=== PATIENT | male | born 1960 | race Caucasian/White ===

== ENCOUNTER 2023-08-08 19:52 | Emergency (ER) | payer OTHER ==
[2023-08-08] MEDS ORDERED: LIDOCAINE 1% 20 ML MDV ONE (20:40)
[2023-08-08] MEDS ORDERED: CEPHALEXIN 250 MG CAP ONE (20:40)
[2023-08-08] MEDS ORDERED: IBUPROFEN 200 MG TAB PO ONE (20:41)
[2023-08-08] MEDS ORDERED: SMZ./TMP. 800/160 MG TABLET ONE (20:41)
[2023-08-08] MEDS ORDERED: HYDROCODONE/APAP 10/325 TAB ONE (20:41)
--- NOTE | 2023-08-08 21:08 | RAD REPORT ---
EXAM DESCRIPTION: RAD - Foot Left 3 View - 08/08/2023 8:56 pm CLINICAL HISTORY: ULCER COMPARISON: <Comparisons> FINDINGS: Soft tissue ulceration is seen adjacent to the fifth metatarsal head. There is bony destru ctive changes involving the distal aspect of the fifth metatarsal as well as the base of the proximal phalanx of the fifth toe compatible with osteomyelitis.
[2023-08-08 21:35] LABS: Absolute Basophils 0.2 K/uL (0-0.5); Absolute Eosinophils 0.1 K/uL (0-0.5); Absolute Lymphocytes (CBC) 3.3 K/uL (0.7-4.9); Absolute Monocytes 1.6 K/uL (0.1-1.3); Absolute Neutrophil 11.4 K/uL (1.8-8.0); Eosinophils % 0.9 % (0-4.4); Hematocrit 37.8 % (39.6-49.0); Hemoglobin 12.8 g/dL (13.6-17.9); Lymphocytes % 19.7 % (15.3-44.8); MCH 30.6 pg (27.0-35.0); MCHC 33.9 g/dL (32.0-36.0); MCV 90.2 fL (80-100); MPV 6.8 fL (7.6-11.3); Monocytes % 9.6 % (3.3-12.3); Neutrophils % 68.8 % (41.7-73.7); Platelets 488 thou/uL (152-406); Red Cell Distribution Width 14.1 % (12.1-15.2)
[2023-08-08 21:58] LABS: ALT/SGPT 15 U/L (16-61); Albumin 3.7 g/dL (3.4-5.0); Albumin/Globulin Ratio 0.8 (1.1-1.8); Alkaline Phosphatase 75 U/L (45-117); Anion Gap 8.9 mEq/L (5.0-15.0); BUN Blood Urea Nitrogen 33 mg/dL (7-18); Bicarbonate 25 mEq/L (21-32); Bilirubin Total 0.6 mg/dL (0.2-1.0); Globulin 4.5 g/dL (2.3-3.5); Glomerular Filtration Rate 34 ml/min (=/>90); Glucose Level 80 mg/dL (74-106); Potassium 3.9 mEq/L (3.5-5.1); Protein, Total 8.2 g/dL (6.4-8.2); Sodium Level 136 mEq/L (136-145)
[2023-08-08 22:01] LABS: AST/SGOT < 10 U/L (15-37)
--- NOTE | 2023-08-08 22:12 | EDPHYS ---
Physician Documentation [facility] Name: Kenny Escalante Age: 63 yrs Sex: Male : 1960 Arrival Date: 08/08/2023 Time: 19:52 Bed 18 Private MD: ED Physician Jean Acharya HPI: 08/07 20:02 This 63 yrs old Male presents to ER via Unassigned with complaints of Foot sp4 Pain - ulcer. 20:08 Patient presents for evaluation of left foot diabetic ulcer. . sp4 22:15 63-year-old male presents with left foot pain and left lateral foot diabetic ulcer. . sp4 Historical: - Allergies: 20:08 No Known Allergies; jj7 - PMHx: 20:08 Diabetes mellitus; Hypertensive disorder; NEUROPATHY; jj7 - PSHx: 20:08 HERNIA REPAIR; Appendectomy; jj7 - Immunization history:: Adult Immunizations not up to date, Client reports having NOT received the Covid vaccine. Pneumococcal vaccine is up to date, Flu vaccine is up to date. - Infectious Disease History:: Denies. - Social history:: Smoking status: Patient reports the use of cigarette tobacco products, smokes 1.5 packs per day, Patient uses Patient/guardian denies using alcohol, street drugs, IV drugs. - Family history:: not pertinent. ROS: 22:15 MS/extremity: Positive for There is moderate size left lateral foot diabetic ulcer with sp4 signs of devitalized tissue and some necrotic debris. Ulcer was washed out during examination, of the lateral side of left foot, 22:15 Constitutional: Negative for fever, chills, and weight loss, Eyes: Negative for injury, pain, redness, and discharge, ENT: Negative for injury, pain, and discharge, Neck: Negative for injury, pain, and swelling, Cardiovascular: Negative for chest pain, palpitations, and edema, Respiratory: Negative for shortness of breath, cough, wheezing, and pleuritic chest pain, Abdomen/GI: Negative for abdominal pain, nausea, vomiting, diarrhea, and constipation, Back: Negative for injury and pain, MS/Extremity: Negative for injury and deformity, Skin: Positive left foot diabetic necrotic ulcer Neuro: Negative for headache, weakness, numbness, tingling, and seizure, Psych: Negative for depression, anxiety, Allergy/Immunology: Negative for hives, rash, and allergies Endocrine: Negative for neck swelling, polydipsia, polyuria, polyphagia, and weight changes 22:15 All other systems are negative, Exam: 22:15 Constitutional: This is a well developed, well nourished patient who is awake, alert, sp4 and in no acute distress. Head/Face: Normocephalic, atraumatic. Eyes: Pupils equal round and reactive to light, extra-ocular motions intact. Lids and lashes normal. Conjunctiva and sclera are not injected. Cornea within normal limits. Periorbital areas with no swelling, redness, or edema. ENT: Nares patent. No nasal discharge, no septal abnormalities noted. Tympanic membranes are normal and external auditory canals are clear. Oropharynx with no redness, swelling, or masses, exudates, or evidence of obstruction, uvula midline. Mucous membranes moist. Neck: Trachea midline, no thyromegaly or masses palpated, and no cervical lymphadenopathy. Supple, full range of motion without nuchal rigidity, or vertebral point tenderness. Chest/axilla: Normal chest wall appearance and motion. Nontender with no deformity. No lesions are appreciated. Cardiovascular: Regular rate and rhythm with a normal S1 and S2. No gallops, murmurs, or rubs. Normal PMI, no JVD. No pulse deficits. Respiratory: Lungs have equal breath sounds bilaterally, clear to auscultation and percussion. No rales, rhonchi or wheezes noted. No increased work of breathing, no retractions or nasal flaring. Abdomen/GI: Soft, with normal bowel sounds. No distension or tympany. No guarding or rebound. No evidence of tenderness throughout. Back: No spinal tenderness. No costovertebral tenderness. Skin: Warm, dry with normal turgor. Normal color with no rashes, no lesions, and no evidence of cellulitis. MS/ Extremity: Pulses equal, no cyanosis. Neurovascular intact. Full, normal range of motion. Positive left foot diabetic necrotic ulcer with devitalized tissue. No sign of left foot cellulitis. Ulcer was washed out during examination Neuro: Awake and alert, GCS 15, oriented to person, place, time, and situation. Cranial nerves II-XII grossly intact. Motor strength 5/5 in all extremities. Sensory grossly intact. Psych: Awake, alert, with orientation to person, place and time. Behavior, mood, and affect are within normal limits Vital Signs: 20:03 BP 91 / 80; Pulse 103; Resp 19; Temp 98.6; Pulse Ox 100% ; Weight 108.86 kg; Height 6 jj7 ft. 1 in. ; Pain 10/10; 21:19 BP 112 / 71; Pulse 84; Pulse Ox 98% on R/A; tm6 22:23 BP 121 / 70; Pulse 86; Resp 19; Temp 98.4(TE); Pulse Ox 97% on R/A; Pain 0/10; tm6 20:03 Body Mass Index 31.66 (108.86 kg, 185.42 cm) [facility] 20:03 Pain Scale: Adult [facility] 22:23 Pain Scale: Adult [facility] [place] Coma Score: 22:15 Eye Response: spontaneous(4). Motor Response: obeys commands(6). Verbal Response: sp4 oriented(5). Total: 15. MDM: 20:19 Patient medically screened. sp4 21:39 ED course: EXAM DESCRIPTION: RAD - Foot Left 3 View - 08/08/2023 8:56 pm CLINICAL sp4 HISTORY: ULCER COMPARISON: FINDINGS: Soft tissue ulceration is seen adjacent to the fifth metatarsal head. There is bony destructive changes involving the distal aspect of the fifth metatarsal as well as the base of the proximal phalanx of the fifth toe compatible with osteomyelitis. Signed By: Joce Allen MD. 22:19 Differential diagnosis: fracture, sprain, foreign body, penetrating trauma, arthritis, sp4 gout, cellulitis. Data reviewed: vital signs, nurses notes, radiologic studies, plain films. ED course: Patient was discussed with general surgeon regarding chronic appearing osteomyelitis of the left fifth metatarsal. Patient at this time stable for discharge home with p.o. antibiotics for the next 21 days including Bactrim twice a day cephalexin 4 times a day. Patient advised to quit smoking stat. Advised to follow-up with general surgeon or office visit is to discuss options about left foot surgery and ulcer debridement. . 08/07 21:30 Order name: Comprehensive Metabolic Panel EDMS 08/07 21:30 Order name: CBC with Automated Diff EDMS 08/07 21:35 Order name: CBC with Automated Diff; Complete Time: 21:41 EDMS 08/07 22:01 Order name: Comprehensive Metabolic Panel; Complete Time: 22:03 EDNH 08/07 20:19 Order name: Foot Left 3 View XRAY sp4 08/07 20:22 Order name: Foot Left 3 View [facility] 08/07 21:09 Order name: RAD; Complete Time: 21:29 EDNH 08/07 20:08 Order name: IV Saline Lock; Complete Time: 21:10 sp4 08/07 20:08 Order name: Labs collected and sent; Complete Time: 21:10 [facility] 08/07 20:29 Order name: Dressing - Wound; Complete Time: 21:35 sp4 08/07 20:29 Order name: Gloves, Sterile; Complete Time: 21:02 [facility] 08/07 20:29 Order name: Setup Suture Tray; Complete Time: 21:02 [facility] 08/07 20:30 Order name: Orthopedic shoe: left foot ortho boot - MD will apply; Complete Time: 21:05 sp4 Administered Medications: 20:58 Drug: Trimethoprim-Sulfamethoxazole PO (160 mg-800 mg (DS) 1 tablet PO once Route: PO; tm6 20:58 Drug: Cephalexin PO 500 mg PO once Route: PO; tm6 20:58 Drug: [place] PO 10 mg-325 mg 1 tabs PO once Route: PO; tm6 20:58 Drug: Ibuprofen PO 600 mg PO once Route: PO; tm6 21:31 Drug: Lidocaine Infiltration (1 %) 20 ml 20 ml Infiltration once; to bedside {Note: tm6 administered by MD.} Volume: 20 ml; Route: Infiltration; 21:32 Not Given (Duplicate Order): lidocaine(1 %) 20 ml 20 ml Infiltration once; to bedside tm6 Disposition Summary: 08/08/23 22:12 Discharge Ordered Problem: new sp4 Symptoms: have improved sp4 Condition: Stable sp4 Diagnosis - Diabetic left foot ulcer, left fifth metatarsal chronic osteomyelitis , sp4 complications of diabetes Followup: sp4 - With: Cedric Mckeon MD - When: 2 - 3 days - Reason: Recheck today's complaints Discharge Instructions: - Discharge Summary Sheet sp4 - Osteomyelitis, Adult sp4 Forms: - Prescription Opioid Use sp4 Prescriptions: - Cephalexin 500 mg Oral capsule - take 1 capsule ORAL route every 6 hours for 21 days; 84 capsule; Refills: 0, sp4 Product Selection Permitted - Tramadol 50 mg Oral tablet - take 1 tablet ORAL route every 8 hours as needed; 25 tablet; Refills: 0, sp4 Product Selection Permitted - Bactrim DS 800-160 mg Oral tablet - take 1 tablet ORAL route every 12 hours for 21 days; 42 tablet; Refills: 0, sp4 Product Selection Permitted - methocarbamol 750 mg Oral tablet - take 2 tablet ORAL route every 8 hours for 2 days PRN pain; 60 tablet; sp4 Refills: 0, Product Selection Permitted Signatures: Dispatcher [employer] [facility] Ryan Goldman RN RN jj7 Jean Acharya MD MD sp4 Shelbie Morales RN RN tm6 Corrections: (The following items were deleted from the chart) 20:09 20:09 C-REACTIVE PROTEIN+C.LAB.BRZ ordered. [facility] 22:21 22:19 ED course: Patient was discussed with general surgeon regarding chronic appearing sp4 osteomyelitis of the left fifth metatarsal. . sp4
--- NOTE | 2023-08-08 22:12 | ER ---
Nurse's Notes [facility] Name: Kenny Escalante Age: 63 yrs Sex: Male : 1960 Arrival Date: 08/08/2023 Time: 19:52 Bed 18 Private MD: Diagnosis: Diabetic left foot ulcer, left fifth metatarsal chronic osteomyelitis , complications of diabetes Presentation: 08/07 20:03 Chief complaint: Patient states: LEFT FOOT ULCER X1.5 MONTHS. Coronavirus screen: At [facility] this time, the client does not indicate any symptoms associated with coronavirus-19. Ebola Screen: No symptoms or risks identified at this time. Initial Sepsis Screen: Does the patient meet any 2 criteria? HR > 90 bpm. Yes Does the patient have a suspected source of infection? No. Patient's initial sepsis screen is negative. Risk Assessment: Do you want to hurt yourself or someone else? Patient reports no desire to harm self or others. Onset of symptoms was June 24, 2023. 20:03 Method Of Arrival: Ambulatory [facility] 20:03 Acuity: SALLY 3 jj7 Triage Assessment: 20:08 General: Appears in no apparent distress. comfortable, Behavior is calm, cooperative, jj7 appropriate for age. Pain: Complains of pain in left foot. Historical: - Allergies: 20:08 No Known Allergies; jj7 - PMHx: 20:08 Diabetes mellitus; Hypertensive disorder; NEUROPATHY; jj7 - PSHx: 20:08 HERNIA REPAIR; Appendectomy; jj7 - Immunization history:: Adult Immunizations not up to date, Client reports having NOT received the Covid vaccine. Pneumococcal vaccine is up to date, Flu vaccine is up to date. - Infectious Disease History:: Denies. - Social history:: Smoking status: Patient reports the use of cigarette tobacco products, smokes 1.5 packs per day, Patient uses Patient/guardian denies using alcohol, street drugs, IV drugs. - Family history:: not pertinent. Screenin:11 [facility] ED Fall Risk Assessment (Adult) History of falling in the last 3 months, jj7 including since admission No falls in past 3 months (0 pts) Confusion or Disorientation No (0 pts) Intoxicated or Sedated No (0 pts) Impaired Gait No (0 pts) Mobility Assist Device Used No (0 pt) Altered Elimination No (0 pt) Score/Fall Risk Level 0 - 2 = Low Risk Oriented to surroundings, Maintained a safe environment, Educated pt \T\ family on fall prevention, incl call for assistance when getting out of bed. Abuse screen: Denies threats or abuse. Nutritional screening: No deficits noted. Tuberculosis screening: No symptoms or risk factors identified. Assessment: 21:19 General: Appears in no apparent distress. Behavior is calm, cooperative. Pain: tm6 Complains of pain in left foot Pain currently is 5 out of 10 on a pain scale. Neuro: Level of Consciousness is awake, alert, obeys commands, Oriented to person, place, time, situation. Cardiovascular: No deficits noted. Patient's skin is warm and dry. Respiratory: Airway is patent Respiratory effort is even, unlabored, Respiratory pattern is regular, symmetrical. GI: No signs and/or symptoms were reported involving the gastrointestinal system. Abdomen is round non-distended. : No signs and/or symptoms were reported regarding the genitourinary system. EENT: No signs and/or symptoms were reported regarding the EENT system. Derm: Wound noted left foot Wound is diabetic foot ulcer Reports pain that is 5 out of 10 on a pain scale. Musculoskeletal: No signs and/or symptoms reported regarding the musculoskeletal system. 22:24 Reassessment: Patient appears in no apparent distress at this time. Patient and/or tm6 family updated on plan of care and expected duration. Pain level reassessed. Patient is alert, oriented x 3, equal unlabored respirations, skin warm/dry/pink. Vital Signs: 20:03 BP 91 / 80; Pulse 103; Resp 19; Temp 98.6; Pulse Ox 100% ; Weight 108.86 kg; Height 6 jj7 ft. 1 in. ; Pain 10/10; 21:19 BP 112 / 71; Pulse 84; Pulse Ox 98% on R/A; tm6 22:23 BP 121 / 70; Pulse 86; Resp 19; Temp 98.4(TE); Pulse Ox 97% on R/A; Pain 0/10; tm6 20:03 Body Mass Index 31.66 (108.86 kg, 185.42 cm) [facility] 20:03 Pain Scale: Adult [facility] 22:23 Pain Scale: Adult 6 [place] Coma Score: 22:15 Eye Response: spontaneous(4). Motor Response: obeys commands(6). Verbal Response: sp4 oriented(5). Total: 15. ED Course: 19:56 Patient arrived in ED. mg5 20:02 Jean Acharya MD is Attending Physician. sp4 20:08 Triage completed. jj7 20:08 Arm band placed on right wrist. jj7 20:34 Shelbie Morales, RN is Primary Nurse. tm6 20:58 Foot Left 3 View In Process Unspecified. EDMS 21:10 CMP Sent. tm6 21:10 CBC with Diff Sent. tm6 21:10 Inserted saline lock: 20 gauge in left antecubital area, using aseptic technique. tm6 21:19 Patient has correct armband on for positive identification. Placed in gown. Bed in low tm6 position. Call light in reach. Side rails up X2. Provided Education on: use of call sutton. Client placed on continuous cardiac and pulse oximetry monitoring. NIBP monitoring applied. Pulse ox on. NIBP on. Door closed. Noise minimized. 22:08 Cedric Mckeon MD is Referral Physician. sp4 22:24 No provider procedures requiring assistance completed. IV discontinued, intact, tm6 bleeding controlled, No redness/swelling at site. Pressure dressing applied. 22:25 Ortho shoe applied to left foot. Wound care: to diabetic foot ulcer located on left tm6 foot was cleaned with Betadine, dressed with 4X4s, Kerlix, Patient tolerated well. 08/08 06:40 Foot Left 3 View XRAY In Process Unspecified. EDMS Administered Medications: 08/07 20:58 Drug: Trimethoprim-Sulfamethoxazole PO (160 mg-800 mg (DS) 1 tablet PO once Route: PO; tm6 20:58 Drug: Cephalexin PO 500 mg PO once Route: PO; tm6 20:58 Drug: [place] PO 10 mg-325 mg 1 tabs PO once Route: PO; tm6 20:58 Drug: Ibuprofen PO 600 mg PO once Route: PO; tm6 21:31 Drug: Lidocaine Infiltration (1 %) 20 ml 20 ml Infiltration once; to bedside {Note: tm6 administered by .} Volume: 20 ml; Route: Infiltration; 21:32 Not Given (Duplicate Order): lidocaine(1 %) 20 ml 20 ml Infiltration once; to bedside tm6 Medication: 21:19 VIS not applicable for this client. tm6 Outcome: 22:12 Discharge ordered by . sp4 22:24 Discharged to home ambulatory, tm6 22:24 Condition: stable 22:24 Discharge instructions given to patient, Instructed on discharge instructions, follow up and referral plans. medication usage, wound care, Demonstrated understanding of instructions, follow-up care, medications, wound care, Prescriptions given X 4, 22:25 Patient left the ED. tm6 Signatures: Dispatcher [employer] EDRyan Lee RN RN jj7 Jean Acharya MD MD sp4 Isha Martinez mg5 Shelbie Morales RN RN tm6
[2023-08-08 23:19] VITALS: BP 121/70; TEMP 98.4; O2SAT 97
== END 2023-08-08 22:25 | disposition home or self-care (01) ==
LOC: ER 19:52
DX: E11.621 Type 2 diabetes mellitus with foot ulcer (principal); M86.672 Other chronic osteomyelitis, left ankle and foot; I10 Essential (primary) hypertension; Z28.310 Unvaccinated for COVID-19
CPT/HCPCS: 85025; 36415; 80053; 73630 ×2; 99284; J2001